=== PATIENT | female | born 2000 | race Caucasian/White ===

== ENCOUNTER 2021-12-08 13:04 | Emergency (ER) | payer MEDICAID ==
[~2021-12-08] VITALS: Ht 160 cm; Wt 54.0 kg
[2021-12-08 13:04] VITALS: BP 125/80
--- NOTE | 2021-12-08 13:04 | NUR ---
LUIS FOR [address] BY [facility] , WANTING TO KILL HERSELF
[2021-12-08] MEDS ORDERED: OLANZapine 5 MG ODT SL ONE ×2 (14:10→15:40)
[2021-12-08] MEDS ORDERED: LORazepam 1 MG TAB PO ONE ×2 (14:20→15:40)
[2021-12-08 14:23] LABS: BASOPHILS % (AUTO) 0.4 % (0.0-2.0); EOSINOPHILS % (AUTO) 0.5 % (0.0-4.0); HEMATOCRIT 39.7 % (36-48); HEMOGLOBIN 13.6 g/dL (12.0-16.0); LYMPHOCYTES # (AUTO) 2.1 K/uL (2.5-16.5); LYMPHOCYTES % (AUTO) 28.2 % (20.5-51.1); MEAN CORPUSCULAR HEMOGLOBIN 31 pg (27-31); MEAN CORPUSCULAR HGB CONC 34 g/dL (33-37); MEAN CORPUSCULAR VOLUME 89.9 fL (80-94); MONOCYTES # (AUTO) 0.6 K/uL (0.8-1.0); MONOCYTES % (AUTO) 8.5 % (1.7-9.3); NEUTROPHILS # (AUTO) 4.7 K/uL (1.8-7.7); NEUTROPHILS % (AUTO) 62.4 % (42.2-75.2); PLATELET COUNT (AUTO) 230 K/uL (140-450); RED BLOOD CELL COUNT(AUTO) 4.41 MIL/uL (4.20-5.40); RED CELL DISTRIBUTION WIDTH 13.3 % (11.6-13.7); WHITE BLOOD COUNT (AUTO) 7.6 K/uL (4.5-11.0)
[2021-12-08 15:29] LABS: ALBUMIN 4.6 g/dL (3.4-5.0); ASPARTATE AMINOTRANSFERASE 18 U/L (15-37); CARBON DIOXIDE 24.7 mmol/L (21-32); CHLORIDE 103 mmol/L (98-107); CREATININE 0.7 mg/dL (0.6-1.3); GFR ARICAN-AMERICAN 139 mL/min (>90); GLUCOSE 86 mg/dL (74-106); POTASSIUM 3.7 mmol/L (3.5-5.1); SODIUM SERUM 138 mmol/L (136-145); TOTAL BILIRUBIN 1.3 mg/dL (0.0-1.0); UREA NITROGEN, BLOOD 14 mg/dL (7-18)
[2021-12-08 15:31] LABS: ACETAMINOPHEN < 0.5 ug/ml (10-30); SALICYLATE < 2.8 mg/dL (2.8-20.0)
[2021-12-08 15:38] LABS: BARBITURATE, URINE NEGATIVE ng/ml (NEG <=200); BENZODIAZEPINE, URINE NEGATIVE ng/mL (NEG <=200); CANNABINOID, URINE POSITIVE ng/mL (NEG <=50); COCAINE, URINE NEGATIVE ng/mL (NEG <=300); OPIATE, URINE NEGATIVE ng/mL (NEG <=2000); PHENCYCLIDINE SCREEN,URINE NEGATIVE ng/mL (NEG <=25)
--- NOTE | 2021-12-08 16:26 | NUR ---
COVID SWABS COLLECTED AND SENT TO LAB
--- NOTE | 2021-12-08 17:50 | NUR ---
PATIENT FOUND TO BE LYING IN BED UPSIDE DOWN AND WRAPPING TAPE AROUND HER FACE AND NECK. TAPE TAKEN AWAY FROM PATIENT, PATIENT PUNCHING BED AND PILLOW MULTIPLE TIMES, DR. JAQUEZ MADE AWARE OF PATIENT STATUS.
[2021-12-08] MEDS ORDERED: OLANZapine 10 MG VIAL IM ONE (18:05)
[2021-12-08] MEDS ORDERED: LORazepam 2 MG/ML VIAL IM ONE (18:05)
[2021-12-08] MEDS ORDERED: HALOPERIDOL IM 5 MG/ML VIAL IM ONE (18:05)
--- NOTE | 2021-12-08 18:33 | NUR ---
PATIENT VERY TEARFUL . MAKING STATEMENTS OF " I DONT FEEL SAFE HERE. " PT HAS BEEN PACING AND SITTING IN BATHROOM ON COUNTER. PT HAD TO BE PHYSICALLY RESTRAINTED TO [facility].
--- NOTE | 2021-12-08 22:14 | NUR ---
PATIETN RESTING IN BED. BED LOW AND LOCKED. [place] SIDE RAILS UP FOR SAFETY. ALL NEEDS MET
--- NOTE | 2021-12-08 22:30 | NUR ---
RECEIVED A VERBAL ORDER FROM MD JAQUEZ VITALS SIGNS QSHIFT. DEVANG MEDICALLY CLEARED.
--- NOTE | 2021-12-09 01:20 | NUR ---
PATIETN AWAKE AND SITTING UP IN BED. REQUESTED MORE BLANKETS BECAUSE SHE WAS COLD. DEVANG APOLOGIZED FOR BEING RUDE DURING THE LAST EPISODE. SHE STATED "I JUST WANTED TO GO HOME BECAUSE ITS MY BIRTHDAY TMRW, BUT I UNDERSTAND I CANT". PATIETN CALM AND COOPERATIVE. CLEAR SPEECH. PATIENT DENIES HARM TO SELF OR OTHERS AT THIS TIME. PATIETN IN BED. BED LOW AND LOCKED. ALL NEEDS MET.
--- NOTE | 2021-12-09 03:09 | NUR ---
PATIETN RESTING IN BED. BED LOW AND LOCKED. [place] SIDE RAILS FOR SAFETY. ALL NEEDS MET.
--- NOTE | 2021-12-09 04:01 | NUR ---
PATIENT SITTING IN BED EATING. BED LOW AND LOCKED. ALL NEEDS MET.
--- NOTE | 2021-12-09 04:17 | NUR ---
DEVANG AMBULATED TO THE AND BACK TO BED 6
--- NOTE | 2021-12-09 04:20 | NUR ---
ELLIOTN SITTING IN BED. ASKED FOR A EWELINA SHERRY STICKER. PLACED ON BEDSIDE TABLE. ALL NEEDS MET
--- NOTE | 2021-12-09 04:40 | NUR ---
DEVANG AMBULATED TO THE AND BACK TO BED 6
--- NOTE | 2021-12-09 06:00 | NUR ---
PATIENT TEARFUL STATED THAT HER FAMILY PUT HER IN HERE BECAUSE THEY THINK SHE IS CRAZY.
--- NOTE | 2021-12-09 06:13 | NUR ---
PATIENT STATED SHE IS REALLY NERVOUS AND STATED I JUST WANTS TO GO HOME, ITS MY BIRTHDAY. ELLIOTN STATED THAT SINGING AND DANCING CALMS HER DOWN. CURRENTLY DANCING AND HAS CALMED DOWN. SHE IS CALM AND COOPERATIVE. ALL NEEDS MET
--- NOTE | 2021-12-09 07:09 | NUR ---
REPORT GIVEN TO SKYE BENITES. TRANSFER OF CARE.
--- NOTE | 2021-12-09 07:32 | NUR ---
REPORT RECIEVED FROM AMANDA CHEUNG
--- NOTE | 2021-12-09 08:23 | NUR ---
PENDING SOC SERVICES. BEHAVORIAL PACKET FAXED OUT
--- NOTE | 2021-12-09 08:48 | NUR ---
TELEPSYCH AT BEDSIDE. AWAITING MD TO APPEAR. PT AT BEDSIDE.
--- NOTE | 2021-12-09 09:46 | NUR ---
TELE MED SPEAKING WITH PATIENT AT BEDSIDE
--- NOTE | 2021-12-09 10:48 | NUR ---
SPOKE WITH TELEPSYCH PHYSICIAN. RECOMMENDTION IS ADMISSION FOR INPATIENT PSYCH.
--- NOTE | 2021-12-09 14:52 | NUR ---
NO CHANGE IN PATIENTS CONDITION. FAMILY DROPPED OFF WARREN. SMALL UPDATE GIVEN TO THE AUNT AND GRANDPARENTS. PATIENT GAVE PREMISSION TO UPDATE AUNT AND GRANDPARENTS. PT RESTING RESP EVEN AND UNLABORED. PENDING PLACEMENT
[2021-12-09] MEDS ORDERED: OLANZapine 5 MG ODT PO SCH (17:00)
--- NOTE | 2021-12-09 22:12 | NUR ---
PROVIDED PT COLORING BOOK. PT ACTING APPROPIATELY
[2021-12-10] MEDS ORDERED: diphenhydrAMINE 50 MG CAP PO ONE (00:25)
[2021-12-10] MEDS ORDERED: LORazepam 1 MG TAB PO ONE ×2 (00:25→09:15)
--- NOTE | 2021-12-10 01:30 | NUR ---
PT MANIC. PACING BACK AND FORTH. PT KWWPS GETTING UP ASKING QUESTIONS . PT SLEEPING AFTER MEDS GIVEN.
--- NOTE | 2021-12-10 03:40 | NUR ---
Patient appears to be resting comfortably in bed. Vital Signs within normal limits. Respirations even and unlabored.
--- NOTE | 2021-12-10 06:00 | NUR ---
PT CALLED GRANDMOTHER DOUG.
--- NOTE | 2021-12-10 07:05 | NUR ---
PT CONTINUES TO WALK UP TO NURSING STATION. PT C/O EAR PAIN AND ANXIETY. DR WILLIAM MADE AWARE
[2021-12-10] MEDS ORDERED: QUEtiapine FUMARATE 100 MG TAB PO SCH (07:15)
--- NOTE | 2021-12-10 07:15 | NUR ---
REPORT TAKEN FROM ADELFO CHEUNG
--- NOTE | 2021-12-10 07:17 | NUR ---
Pt report given to KAMARI. Transfer of care at this time.
--- NOTE | 2021-12-10 07:57 | NUR ---
PT PROVIDED WITH BREAKFAST. PT AWAKE AND EATING IN BED
--- NOTE | 2021-12-10 08:15 | NUR ---
21YR OLD FEMALE BIB FOR SI AND ON A 5150 HOLD. PT IS PENDING ACCEPTANCE FOR PLACEMENT. FAXES HAVE SENT OUT. PT IS UP AT [place]. GAIT STEADY. PT HAS BEEN ASKED NUMEROUS TIMES ABOUT ROAMING IN THE DORMAN. A&OX4. DENIES ANY PAIN CP OR SOB. WILL CONTINUE TO MONITOR PT
--- NOTE | 2021-12-10 08:38 | NUR ---
PT STRETCHING AND DOING DANCE POSES BESIDE THE BED
--- NOTE | 2021-12-10 08:51 | NUR ---
PT AMBULATED TO RESTROOM
--- NOTE | 2021-12-10 08:53 | NUR ---
PT AMBULATED BACK TO ROOM
[2021-12-10 09:43] VITALS: BP_DIAS 73
--- NOTE | 2021-12-10 09:47 | NUR ---
UPDATED VS GIVEN TO MARIA E FROM [facility]. FILE IS UNDER REVIEW ; WILL FOLLOW UP WITH PENDING ACCEPTANCE
--- NOTE | 2021-12-10 10:14 | NUR ---
PATIENTS AUNT CALLED FOR ANY UPDATED INFO ON POSSIBLE TRANSFER. SPOKE WITH PATIENT, AWARE AUNT HAS CALLED. PATIENT IS FEELING AT EASE , RESTING IN BED. SIDE RAILS UP X2 .
--- NOTE | 2021-12-10 10:48 | NUR ---
ACCEPTANCE AT [facility]. [facility] ETA 11AM .
--- NOTE | 2021-12-10 11:05 | NUR ---
ATTEMPTED TO GIVE REPORT TO [facility] PLACED ON HOLD [facility] HERE TO TRANSPORT, WILL ATTEMPT TO CALL AND GIVE REPORT
--- NOTE | 2021-12-10 11:15 | NUR ---
Patient to be transferred to [facility]. Is being transferred due to HIGHER LEVEL OF CARE. Receiving facility has accepting physician and available space. ER physician has signed transfer form. Patient or responsible green party has agreed to transfer and signed form. Patient belongings inventoried and will be sent with patient. Copy of nursing notes, lab reports, EKG, Physicians Orders and X-rays to be sent with patient. Report called to REJI ROSE at receiving facility. [facility] ambulance service has been called for transfer. ETA is 60 MINS.
--- NOTE | 2021-12-10 11:18 | NUR ---
REPORT CALLED TO REJI ROSE AT [facility]. BHAVYA ETA OF A HOUR TO [facility]
--- NOTE | 2021-12-10 11:18 | NUR ---
SPOKE WITH PTS AUNT, LUIS ANTONIO TO NOTIFY HER SHE HAS BEEN TRANSFERRED TO [facility]. ADDRESS/PHONE NUMBER PROVIDED
--- NOTE | 2021-12-10 11:19 | NUR ---
The patient's care was reviewed and supervised by Flora Christine RN.
== END 2021-12-10 11:15 ==
LOC: MED 13:04
DX: F31.9 Bipolar disorder, unspecified (principal); Z20.822 Contact with and (suspected) exposure to COVID-19; F30.9 Manic episode, unspecified; F32.9 Major depressive disorder, single episode, unspecified; F41.9 Anxiety disorder, unspecified; F17.210 Nicotine dependence, cigarettes, uncomplicated
CPT/HCPCS: 36415; 80053; 80305; 81025; 85025; 87426; 87635; 96372; 99285; C9803; G0480; G0482; J1630; J2060; Q0163; U0003